=== PATIENT | male | born 1940 | race African-American/Black ===

== ENCOUNTER 2016-11-04 08:16 | Outpatient (CLI) | payer MEDICARE ==
--- NOTE | 2016-11-04 11:05 | Fluoroscopy Report ---
Double contrast barium swallow. History: Dysphagia. Findings: The esophagus is normal in caliber. There are mild tertiary contractions. There is no evidence of stricture or ulceration. There is no hiatal hernia or gastroesophageal reflux. Impression: Mild esophageal dysmotility.
--- NOTE | 2016-11-04 11:26 | XRay Report ---
PA and lateral chest: Dysphasia. Sodus scattered calcifications are identified in the upper lobes bilaterally as well as in the right lower lung. There is a slight coarsening of the interstitial pulmonary pattern. No noncalcified nodules or infiltrates are identified. The heart is normal in size and is no vascular congestion. The lungs may be minimally hyperinflated. Impression: Chronic lung disease and old granulomatous infection. No acute finding suspected.
== END 2016-11-04 08:17 | disposition home or self-care (01) ==
LOC: FLUORO 08:16
PROVIDERS: ATTEND Internal Medicine
DX: K22.4 Dyskinesia of esophagus (principal); R91.8 Other nonspecific abnormal finding of lung field; J98.4 Other disorders of lung
CPT/HCPCS: 71020; 74220